=== PATIENT | female | born 1995 | race Caucasian/White ===

== ENCOUNTER 2018-04-19 13:46 | Inpatient (IN) ==
[2018-04-19 15:28] LABS: Basophils % 0.2 % (0.0-0.8); Eosinophils # 0.1 10*3/uL (0.0-0.87); Eosinophils % 0.4 % (0.00-10.9); Hematocrit 32.2 VOL% (35.7-47.0); Hemoglobin 10.3 GM/DL (12.0-16.0); Immature Granulocytes % 1.2 %; Lymphocytes # 2.9 10*3/uL (1.4-4.0); Mean Corpuscular Hemoglobin 31 PG (27-34); Mean Corpuscular Volume 96.4 FL (87-102); Monocytes # 1.3 10*3/uL (0.11-0.8); Monocytes % 8.1 % (1.7-12.7); Neutrophils # 11.8 10*3/uL (1.4-7.4); Neutrophils % 72.1 % (38.7-73.9); Platelet Count 203 T/CUMM (130-400); Red Blood Count 3.34 MC/CUMM (3.8-5.5); Red Cell Distribution Width 14.9 % (9.3-17.3); White Blood Count 16.3 T/CUMM (4-12)
[2018-04-19 15:46] LABS: Alanine Aminotransferase 15 U/L (13-56); Albumin 2.5 G/DL (3.4-5.0); Alkaline Phosphatase 156 U/L (45-117); Aspartate Amino Transferase 16 U/L (0-37); Bilirubin,Total < 0.39 MG/DL (0.2-1.0); Blood Urea Nitrogen 8 MG/DL (7-18); Calcium 8.4 MG/DL (8.5-10.1); Glucose 64 MG/DL (74-106); Osmolality,Calculated 278.1 MOS/KG (273-304); Potassium 3.8 MMOL/L (3.5-5.1); Sodium 142 MMOL/L (136-145); Total Protein 6.4 G/DL (6.4-8.3); Uric Acid 5.8 MG/DL (2.6-6.0)
[2018-04-19 19:48] LABS: Apearance,Urine CLEAR (Clear); Bilirubin,Urine Negative (Negative); Blood, Urine Negative (Negative); Glucose,Urine (UA) Negative (Negative); Ketones,Urine 20 mg/dL (Negative); Mucus,Urine Occasional /LPF (Occasional); Nitrite,Urine Negative (Negative); Protein,Urine Negative; RBC,Urine 1 /HPF (0-4); Urine Color Yellow (Yellow); Urine Specific Gravity 1.017 (1.001-1.035); WBC,Urine <1 /HPF (0-6)
[2018-04-19 23:05] LABS: Cord Arterial Blood HCO3 19.7 MMOL/L
[2018-04-19 23:09] LABS: Cord Venous Blood HCO3 22.3 MMOL/L; Cord Venous Blood PCO2 42.8 MMHG; Cord Venous Blood PO2 28.1
[2018-04-20 05:43] LABS: Basophils % 0.2 % (0.0-0.8); Eosinophils # 0.1 10*3/uL (0.0-0.87); Eosinophils % 0.3 % (0.00-10.9); Hemoglobin 10.5 GM/DL (12.0-16.0); Lymphocytes # 4.1 10*3/uL (1.4-4.0); Mean Corpuscular HGB Conc 31.8 GM/DL (32-36); Mean Corpuscular Hemoglobin 31 PG (27-34); Mean Corpuscular Volume 96.5 FL (87-102); Mean Platelet Volume 10.9 FL (9.6-12.0); Monocytes # 1.6 10*3/uL (0.11-0.8); Monocytes % 8.3 % (1.7-12.7); Neutrophils # 13.6 10*3/uL (1.4-7.4); Neutrophils % 69.2 % (38.7-73.9); Platelet Count 186 T/CUMM (130-400); Red Blood Count 3.42 MC/CUMM (3.8-5.5); Red Cell Distribution Width 14.8 % (9.3-17.3); White Blood Count 19.6 T/CUMM (4-12)
[2018-04-21 08:01] VITALS: BP 108/73
== END 2018-04-21 15:50 | disposition home or self-care (01) | DRG 560 ==
LOC: N.LDOUT 13:46 → N.LD 13:49 → N.OB 04-20 01:03
PROVIDERS: ADMIT Obstetrics & Gynecology; ATTEND Obstetrics & Gynecology